=== PATIENT | female | born 1930 | race Caucasian/White ===

== ENCOUNTER → 2016-07-01 | Outpatient (CLI) | payer MEDICARE ==
[~2016-07-01] MED LIST: ALEN10TA PO; ASPI-730 PO; CALC-586 PO; DIPH25CA84 PO; IBUP-1324 PO; LOVA20TA71 PO; [UNRECOGNIZED DRUG - CODE] PO
== END ==
LOC: WC.BC 08:49
DX: Z12.31 Encounter for screening mammogram for malignant neoplasm of breast (principal)
CPT/HCPCS: 77063; G0202